=== PATIENT | male | born 1995 | race Caucasian/White ===

== ENCOUNTER 2018-07-07 17:08 | Emergency (ER) | payer SELFPAY ==
[~2018-07-07] VITALS: Ht 170.2 cm; Wt 64.4 kg
[2018-07-07 17:10] VITALS: BP 136/77
--- NOTE | 2018-07-07 17:10 | NUR ---
PATIENT TO BED # 12 BY PARAMEDICS
--- NOTE | 2018-07-07 17:38 | NUR ---
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 FAMILY MEMBER LEFT FOOD COOKING UNATTENTED. FIRE DEPT. IN THE HOUSE CLEARING SMOKE. DENIES HX,DENIES MEDS. CHEST PAIN ONLY WITH DEEP BREATHING. DR. GOMEZ MADE AWARE OF PATENT. O2 2LNC APPLIED. EKG DONE
--- NOTE | 2018-07-07 17:54 | NUR ---
PT ABLE TO PROVIDE URINE SAMPLE, COLLECTED BY ROOPA SPIVEY AND SEND TO THE LAB
[2018-07-07] MEDS ORDERED: DEXAMETHASONE 10 MG/ML VIAL IM ONE (17:55)
[2018-07-07] MEDS ORDERED: ALBUTEROL SULFATE/IPRATROPIU 3 ML SOL IH ONE (17:55)
[2018-07-07 18:21] LABS: BARBITURATE, URINE NEG. ng/ml (NEG <=200); BENZODIAZEPINE, URINE NEG. ng/mL (NEG <=200); CANNABINOID, URINE NEG. ng/mL (NEG <=50); COCAINE, URINE NEG. ng/mL (NEG <=300); OPIATE, URINE NEG. ng/mL (NEG <=2000); PHENCYCLIDINE SCREEN,URINE NEG. ng/mL (NEG <=25)
--- NOTE | 2018-07-07 18:43 | NUR ---
[facility]AT[facility] DRUG GIVEN ORDERED ENCOURAGED PATIENT FOR DEEP BREATHING DURING THERAPY
[2018-07-07 19:25] VITALS: BP 100/47
== END 2018-07-07 19:25 | disposition home or self-care (01) ==
LOC: MED 17:08
DX: F41.9 Anxiety disorder, unspecified (principal); J70.5 Respiratory conditions due to smoke inhalation; Y26.XXXA Exposure to smoke, fire and flames, undetermined intent, initial encounter; Y93.89 Activity, other specified; Y92.89 Other specified places as the place of occurrence of the external cause; Y99.8 Other external cause status
CPT/HCPCS: 71046; 80305; 94640; 96372; 99283; J1100; J7620; 93005